=== PATIENT | female | born 1970 | race Caucasian/White ===

== ENCOUNTER 2016-09-24 20:20 | Emergency (ER) | payer SELFPAY ==
[2016-09-24 22:16] VITALS: BP 154/104
== END 2016-09-24 22:41 | disposition home or self-care (01) ==
LOC: ED 20:20
DX: S30.0XXA Contusion of lower back and pelvis, initial encounter (principal); V89.2XXA Person injured in unspecified motor-vehicle accident, traffic, initial encounter; Y93.89 Activity, other specified; Y92.89 Other specified places as the place of occurrence of the external cause; Y99.8 Other external cause status
CPT/HCPCS: J1885